=== PATIENT | male | born 1950 | race Caucasian/White ===

== ENCOUNTER 2021-09-24 08:26 | Outpatient (CLI) | payer OTHER, SELFPAY ==
[2021-09-24 10:55] LABS: Albumin* 4.3 g/dL (3.3-5.0); Chloride* 105 mmol/L (96-114); Sodium* 138 mmol/L (135-149)
[2021-09-24 10:57] LABS: Cholesterol* 209 mg/dL (90-199)
[2021-09-24 10:58] LABS: Alanine Aminotransferase* 27 U/L (4-50); Alkaline Phosphatase* 84 U/L (40-150); Aspartate Amino Transferase* 25 U/L (12-35); Bilirubin Total* 0.3 mg/dL (0.1-1.5); Blood Urea Nitrogen* 21 mg/dL (7-30); Calcium* 9.4 mg/dL (8.4-10.6); Carbon Dioxide* 28 mmol/L (20-32); Creatinine* 0.9 mg/dL (0.5-1.5); Estimated Glomerular Filt Rate 92 ml/min; Glucose* 98 mg/dL (60-115); Total Protein* 7.4 g/dL (6.0-8.3); Triglycerides* 91 mg/dL (40-149)
[2021-09-24 10:59] LABS: HDL Cholesterol* 46 mg/dL (>=40); LDL Cholesterol Calculated 145 mg/dL (<100)
[2021-09-24 11:30] LABS: PSA Screen* 1.48 ng/mL (0.10-4.00)
== END 2021-09-24 08:27 | disposition home or self-care (01) ==
PROVIDERS: PCP Internal Medicine; Visit Provider Internal Medicine
DX: Z00.00 Encounter for general adult medical examination without abnormal findings (principal); Z12.5 Encounter for screening for malignant neoplasm of prostate; Z13.6 Encounter for screening for cardiovascular disorders
CPT/HCPCS: 80053; 80061; 84153

== ENCOUNTER 2022-10-27 07:58 | Outpatient (CLI) | payer OTHER, SELFPAY | END 2022-10-27 07:59 | disposition home or self-care (01) | LOC: NFLDREF 10-29 12:27 | PROVIDERS: PCP Internal Medicine; Referring Provider Internal Medicine; Visit Provider Internal Medicine | DX: Z13.6 Encounter for screening for cardiovascular disorders (principal); Z12.5 Encounter for screening for malignant neoplasm of prostate | CPT/HCPCS: 80053; 80061; 84153 ==

== ENCOUNTER 2023-11-25 08:51 | Outpatient (CLI) | payer OTHER, SELFPAY ==
--- OUTSIDE RECORDS SUMMARY | 2023-11-25 08:55 | XMS_ITS | Clinical Summary ---
[facility] Address [address] [place] [address] Care Team Providers Care Executive Chairman Of The Board Name Role Phone Found, No Pcp MD Primary Care Provider Unavailab le Source Comments You are receiving this document as you are listed as the primary care provider,follow-up provider, or the patient has been referred to you for consultation.This is in compliance with the Medicare and[employer] Hospital[employer] EHR Incentive Program,which states Providers who transition their patient to another setting of careor provider of care or refers their patient to another provider of care shouldprovide summary care record for each transition of care or referral. Formerly [facility], 1928–1983 Allergies Active Allergy Reactions Criticality Noted Date Comments Review Food Intolerance 09/25/2005 PN: LW FI1: nka Medications Medication Sig Dispensed Refills Start Date End Date Status sildenafil (VIAGRA) 50 MG tabletIndications:Erect ile dysfunction of organic origin Take 1 Tab by mouth as needed (Take 1 tablet by mouth as needed.). 6 Tab 12 12/23/2016 Active Active Problems Problem Noted Date Diagnosed Date Sensorineural hearing loss, asymmetrical 013 Erectile dysfunction of organic origin 3 Adenomatous colon polyp 09/10/2010 Resolved Problems Problem Noted Date Diagnosed Date Resolved Date Encounter for removal of sutures 10/31/2010 04/13/2012 Hyperlipidemia 02/02/2006 04/13/2012 Overview (10/21/2016): Hyperlipidemia On Treatment Obesity 02/02/2006 04/13/2012 Hearing loss 07/26/2003 07/01/2015 Overview (10/21/2016): LW Modifier: left LW Onset: [id number] ; Hearing Loss NOS Impotence of organic origin 07/26/2003 02/02/2006 Overview (10/21/2016): LW Onset: [id number] ; Erectile Dysfunction Organic Immunizations Name Administration Dates Next Due Influenza IIV4 (Quadrivalent) 0.5mL (65188) 11/30,12/06/2015,12/13/2013 TDAP (ADACEL) 07/24/2010 Td 07/26/2003 Family History Medical History Relation Name Comments Arthritis Mother High Blood Pressure Mother Cancer, Stomach Brother 2 Relation Name Status Comments Father Alive Mother (Age 79) Brother 1 (Age 45) Suicide Brother 2 (Age 54) Sister Alive Social History Tobacco Use Types Packs/Day Years Used Date Smoking Tobacco: Never Smokeless Tobacco: Never Alcohol Use Standard Drinks/Week Comments Yes 6 (1 standard drink = 0.6 oz pure alcohol) Alcoholic Drinks/day: Amount:3 drinks/wk Sex and Gender Information Value Date Recorded Sex Assigned at Not on file Gender Identity Not on file Sexual Orientation Not on file Last Filed Vital Signs Vital Sign Reading Time Taken Comments Blood Pressure 136/78 12/23/2016 9:31 AM CDT Pulse 76 12/23/2016 9:31 AM CDT Temperature 36.7 ??C (98.1 ??F) 01/13/2014 9:20 AM CS T Respiratory Rate 16 01/16/2016 4:00 PM CELLAR SUPERVISOR Oxygen Saturation 99% 01/16/2016 4:00 PM CELLAR SUPERVISOR Inhaled Oxygen Concentration - - Weight 88.5 kg (195 lb) 12/23/2016 9:31 AM CDT Height 179 cm (5' 10.47) 12/23/2016 9:31 AM CDT Body Mass Index 27.61 12/23/2016 9:31 AM CDT Plan of Treatment Health Maintenance Due Date Last Done Comments Zoster/Shingles (1 of 2) 01/22/2002 Pneumococcal 65+ Yrs (1 - PCV) 01/22/2017 Adult Preventive Visit 12/23/2017 12/23/2016 DTaP/Tdap/Td (2 - Tdap) 07/24/2020 07/24/2010, 07/25 Colonoscopy 01/15/2021 01/16/2016, 08/30 (Completed) Cholesterol 12/23/2021 12/23/2016, 04/2015, 05/08/2014, Additional history exists COVID-19 Vaccine ( - 2023- season) 2023 Influenza (#1) 2023 12/23/2016, 08/2015, 12/13/2013 RSV (1 - 1-dose 75+ series) 01/22/2027 Hep C Screening (Preventive Services) Completed 12/23/2016 PSA Screening Discussion Discontinued 017, 07/01/2015, 05/08/2014, Additional history exists HepA Aged Out No longer eligi ble based on patient's age to complete this topic HepB Aged Out No longer eligi ble based on patient's age to complete this topic Hib Aged Out No longer eligi ble based on patient's age to complete this topic IPV (Polio) Aged Out No longer eligi ble based on patient's age to complete this topic MCV4 Aged Out No longer eligi ble based on patient's age to complete this topic Procedures Procedure Name Priority Date/Time Associated Diagnosis Comments PROSTATIC SPECIFIC ANTIGEN(SCREEN) Routine 12/23/2016 10:25 AM CDT Routine physical examination HEPATITIS C ANTIBODY, WITH REFLEX Routine 12/23/2016 10:25 AM CDT Routine physical examination LIPID PANEL & DIRECT LDL (IF NEEDED) Routine 12/23/2016 10:25 AM CDT Routine physical examination ENDOSCOPY, COLON, SCREENING/DIAGNOSTI C Routine 01/16/2016 2:26 PM CELLAR SUPERVISOR Adenomatous colon polyp from Last 3 Months or Most Recently Relevant to Health Maintenance Results * (ABNORMAL) Lipid Panel and Direct LDL(If Needed) (12/23/2016 10:25 AM CDT) Cholesterol 233(H) 0 - 199 mg/dL PN SOFT Triglycerides 97 4 - 149 mg/dL PN SOFT HDL Cholesterol 60 >39 mg/dL PN SOFT Cholesterol/HDL Ratio Screen 3.9 PN SOFT LDL Calculated 154(H) 19 - 130 mg/dL PN SOFT Hours Fasting 12.0 PN SOFT 12/23/2016 10:2 5 AM CDT 12/23/2016 10:25 AM CDT Narrative PN SOFT - 12/23/2016 10:57 AM CDT Performed at [facility], [address] [place] [address] CLIA number [id number] Vida Lal MD LAB_1 Performing Organization Address [facility] Co de Phone Number PN SOFT [address] [place] [address] * Prostatic Specific Antigen (Screen) (12/23/2016 10:25 AM CDT) Prostate Specific Antigen 1.0 0.0 - 4.0 ng/mL PN SOFT Comment: The [employer]ona PSA Chemiluminescent immunoassay is used. Results obtained with different test methods or kits cannot be used interchangeably. 12/23/2016 10:2 5 AM CDT 12/23/2016 3:59 PM CDT Narrative PN SOFT - 12/23/2016 4:53 PM CDT Performed at [address] [address] CLIA number [id number] Vida Lal MD LAB_1 Performing Organization Address [facility] de Phone Number PN SOFT [address] [place] [address] * Hepatitis C Antibody, with Reflex (12/23/2016 10:25 AM CDT) Hepatitis C Antibody Nonreactive Nonreactive PN SOFT 12/23/2016 10:2 5 AM CDT 12/23/2016 1:28 PM CDT Narrative PN SOFT - 12/23/2016 2:15 PM CDT Performed at [facility], [address] [place] [address] CLIA number [id number] Vida Lal MD LAB_1 Performing Organization Address [facility] Co de Phone Number PN SOFT [address] [place] [address] * Endoscopy, colon, diagnostic (01/16/2016 2:26 PM CELLAR SUPERVISOR) Anatomical Region Laterality Modality Other 01/16/2016 2:26 PM CELLAR SUPERVISOR Narrative 01/16/2016 2:26 PM CELLAR SUPERVISOR Patient Name: Kamlesh Licona Procedure Date: 01/16/2016 2:26 PM Date of : 1950 Admit Type: Outpatient Age: 65 Gender: Male Note Status: Finalized Attending MD: Brad Herrera MD Procedure: ? Colonoscopy Indications: ? High risk colon cancer surveillance: ? Personal history of adenoma less than ? 10 mm in size Providers: ? Brad Herrera MD, [facility] ? KRYS Alberts Patient Profile: ? This is a 65 year old man who had ? adenomatous polyps removed in August ? 2010. He presents today for a follow ? up colonoscopy, and he denies bowel ? complaints. There is no family ? history of polyps or colon cancer. Referring MD: ?Vida Lal MD Medicines: ? Midazolam 2 mg IV, Fentanyl 100 ? micrograms IV Complications: ? No immediate complications. Procedure: ? After I obtained informed consent, ? the scope was passed under direct ? vision. Throughout the procedure, the ? patient's blood pressure, pulse, and ? oxygen saturations were monitored ? continuously. The [id number] was ? introduced through the anus and ? advanced to 10 cm into the ileum. The ? colonoscopy was performed without ? difficulty. The patient tolerated the ? procedure well. The quality of the ? bowel preparation was good. Findings: ? The perianal and digital rectal examinations were ? normal. Pertinent negatives include normal prostate ? (size, shape, and consistency). ? The terminal ileum appeared normal. ? A 3 mm polyp was found in the transverse colon. The ? polyp was sessile. The polyp was removed with a cold ? biopsy forceps. Resection and retrieval were complete. ? A 5 mm polyp was found in the sigmoid colon. The ? polyp was sessile. The polyp was removed with a cold ? snare. Resection and retrieval were complete. ? A few small-mouthed diverticula were found in the ? sigmoid colon and in the descending colon. ? Internal hemorrhoids were found during retroflexion. ? The hemorrhoids were small. ? The exam was otherwise without abnormality. Impression: ?- Two small polyps (removed), ? otherwise normal colon and terminal ? ileum. Recommendation: ?- Await pathology results. ? - Repeat colonoscopy in 5 years for ? surveillance. ? - Return to see Dr. Lal as ? needed. Procedure Code(s): ?? --- Professional --- ? 96482, Colonoscopy, flexible; with ? removal of tumor(s), polyp(s), or ? other lesion(s) by snare technique ? 40050, 59, Colonoscopy, flexible; ? with biopsy, single or multiple Diagnosis Code(s): ?? --- Professional --- ? Z86.010, Personal history of colonic ? polyps ? K64.8, Other hemorrhoids ? D12.3, Benign neoplasm of transverse ? colon ? D12.5, Benign neoplasm of sigmoid ? colon ? K57.30, Diverticulosis of large ? intestine without perforation or ? abscess without bleeding CPT copyright 2014 [employer]. All rights reserved. The codes documented in this report are preliminary and upon fan balancer review may be revised to meet current compliance requirements. Brad Herrera MD 01/16/2016 3:47:29 PM This document has been electronically signed. Number of Addenda: 0 Note Initiated On: 01/16/2016 2:26 PM ? Endoscopy Report Procedure Note Brad Herrera MD - 01/16/2016 Patient Name: Kamlesh Licona Procedure Date: 01/16/2016 2:26 PM Date of : 1950 Admit Type: Outpatient Age: 65 Gender: Male Note Status: Finalized Attending MD: Brad Herrera MD Procedure: Colonoscopy Indications: High risk colon cancer surveillance: Personal history of adenoma less than 10 mm in size Providers: Brad Herrera MD, Trista Alberts RN Patient Profile: This is a 65 year old man who had adenomatous polyps removed in August of 2010. He presents today for a follow up colonoscopy, and he denies bowel complaints. There is no family history of polyps or colon cancer. Referring MD: Vida Lal MD Medicines: Midazolam 2 mg IV, Fentanyl 100 micrograms IV Complications: No immediate complications. Procedure: After I obtained informed consent, the scope was passed under direct vision. Throughout the procedure, the patient's blood pressure, pulse, and oxygen saturations were monitored continuously. The [id number] was introduced through the anus and advanced to 10 cm into the ileum. The colonoscopy was performed without difficulty. The patient tolerated the procedure well. The quality of the bowel preparation was good. Findings: The perianal and digital rectal examinations were normal. Pertinent negatives include normal prostate (size, shape, and consistency). The terminal ileum appeared normal. A 3 mm polyp was found in the transverse colon. The polyp was sessile. The polyp was removed with a cold biopsy forceps. Resection and retrieval were complete. A 5 mm polyp was found in the sigmoid colon. The polyp was sessile. The polyp was removed with a cold snare. Resection and retrieval were complete. A few small-mouthed diverticula were found in the sigmoid colon and in the descending colon. Internal hemorrhoids were found during retroflexion. The hemorrhoids were small. The exam was otherwise without abnormality. Impression: - Two small polyps (removed), otherwise normal colon and terminal ileum. Recommendation: - Await pathology results. - Repeat colonoscopy in 5 years for surveillance. - Return to see Dr. Lal as needed. Procedure Code(s): --- Professional --- 70162, Colonoscopy, flexible; with removal of tumor(s), polyp(s), or other lesion(s) by snare technique 12676, 59, Colonoscopy, flexible; with biopsy, single or multiple Diagnosis Code(s): --- Professional --- Z86.010, Personal history of colonic polyps K64.8, Other hemorrhoids D12.3, Benign neoplasm of transverse colon D12.5, Benign neoplasm of sigmoid colon K57.30, Diverticulosis of large intestine without perforation or abscess without bleeding CPT copyright 2014 [employer]. All rights reserved. The codes documented in this report are preliminary and upon fan balancer review may be revised to meet current compliance requirements. Brad Herrera MD 01/16/2016 3:47:29 PM This document has been electronically signed. Number of Addenda: 0 Note Initiated On: 01/16/2016 2:26 PM Endoscopy Report Vida Lal MD ET GI PROCEDURE OR DERABLES from Last 3 Months or Most Recently Relevant to Health Maintenance Advance Directives Documents on File Type Date Recorded Patient [place] Expl anation Advance Directive/Living Will/Durable Power of Attny on file/POLST PN 05/18/2013 3:07 PM Care Teams Executive Chairman Of The Board Relationship Specialty Start Date End Date Found, No Pcp, [address] [place] [place] [address] PCP - General 05/05/21
== END 2023-11-25 08:52 | disposition home or self-care (01) ==
PROVIDERS: PCP Internal Medicine; Visit Provider Internal Medicine
DX: Z13.6 Encounter for screening for cardiovascular disorders (principal); Z12.5 Encounter for screening for malignant neoplasm of prostate; Z13.9 Encounter for screening, unspecified
CPT/HCPCS: 80053; 80061; G0103

== ENCOUNTER 2024-11-29 08:14 | Outpatient (CLI) | payer OTHER, SELFPAY | END 2024-11-29 08:15 | disposition home or self-care (01) | PROVIDERS: PCP Internal Medicine; Visit Provider Internal Medicine | DX: Z13.9 Encounter for screening, unspecified (principal) | CPT/HCPCS: 80053; 80061; G0103 ==